=== PATIENT | male | born 1950 | race Caucasian/White ===

== ENCOUNTER → 2017-06-13 | Day surgery (SDC) | payer MEDICARE ==
[~2017-06-13] MED LIST: ALPR0.5T99 PO; AMBI10TA PO; BUPIVACAINE/EPINEPHRINE 0.25% PF 30 ML VIAL INFIL ONE; KETOROLAC TROMETHAMINE 30 MG/ML (IVP) VIAL IV PUSH ONE; LACTATED RINGER'S 1000 ML INJ 1,000 ML ONE; MIDAZOLAM HCL 2 MG/2 ML VIAL ONE; ONDANSETRON HCL 4 MG/2 ML VIAL IV PUSH ONE; PROPOFOL 200 MG/20 ML AMP IV ONE; ROSU5 PO; ceFAZolin INJ 1,000 MG VIAL ONE
--- NOTE | 2017-06-14 14:34 | MP ---
cc: CAMILO DODSON M.D. DATE OF SURGERY: 06/13/2017 PREOPERATIVE DIAGNOSIS Right knee medial meniscus tear. POSTOPERATIVE DIAGNOSIS Right knee medial meniscus tear. PROCEDURE Right knee arthroscopic partial medial meniscectomy. ANESTHESIA General. SURGEON Camilo Dodson MD ESTIMATED BLOOD LOSS Minimum. SPECIMEN Fragments discarded. COMPLICATIONS None known. INDICATION Jose Juan Fontana is a 66-year-old male with persistent medial sided pain and swelling with MRI findings of complex meniscus tear. This is significantly interfering with his quality of life. He is indicated for arthroscopic partial meniscectomy. Risks, benefits were thoroughly discussed. All his questions were answered. Detailed informed consent was obtained. PROCEDURE The patient was brought to the operating room. He was placed under general anesthetic. The right lower extremity was prepped and draped in usual sterile fashion. IV antibiotics were given. Time-out was completed. Marcaine was injected, inferior portal was made. Blunt trocar was used to introduce the cannula. Patellofemoral joint appeared normal, ACL appeared normal. Lateral compartment showed some minimal fraying along the edge of the meniscus, otherwise normal. 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 The medial portal was made, Marcaine about this portal, proceeded with arthroscopic partial medial meniscectomy using combination of basket forceps and arthroscopic shaver and switched over switching stick and came into the opposite angle, smoothed and fine-tuned, additionally, smoothed and fine-tuned weightbearing portion of the medial femoral condyle any unstable fibers. Followup photographs were taken. The scope was placed back in the lateral portal. Repeat diagnostic arthroscopy confirmed no loose bodies. Arthroscopic equipment was removed. Marcaine was injected. Steri-Strips were applied. Sterile dressing was applied. Jd wrap was applied. The patient was awoken and returned to the recovery room in stable condition. MD JORDON Shen/TLL /10:06 AM /2:25 PM
== END | disposition home or self-care (01) ==
LOC: ESDC 07:20
PROVIDERS: ATTEND Orthopaedic Surgery Sports Medicine
DX: S83.231A Complex tear of medial meniscus, current injury, right knee, initial encounter (principal)
CPT/HCPCS: 01400; 29881; J0690; J1885; J2250; J2405; J3010; J7120